=== PATIENT | female | born 1960 ===

== ENCOUNTER 2023-05-17 11:45 | Inpatient (IN) | payer OTHER ==
[~2023-05-17] VITALS: Ht 172.7 cm; Wt 77.6 kg
[2023-05-17] MEDS ORDERED: GLUMETZA500 MG PO (13:18)
[2023-05-17] MEDS ORDERED: CRESTOR20 MG PO (13:18)
[2023-05-17] MEDS ORDERED: SYNTHROID112 MCG PO (13:18)
[2023-05-25 18:16] LABS: HEMOGLOBIN 11.6 g/dL (12.0-15.00); MEAN CELL VOLUME 82.5 fL (80.00-100.00); MEAN CORPUSCULAR HEMOGLOBIN 26.6 pg (27.00-32.0); MEAN CORPUSCULAR HGB CONC 32.2 g/dl (32.0-36.0); PLATELET COUNT 280 K/uL (150-450); RED BLOOD COUNT 4.36 M/uL (4.00-6.00); RED CELL DISTRIBUTION WIDTH 14.1 % (11.5-14.5)
[2023-05-26 07:28] LABS: HEMATOCRIT 37.5 % (36.0-45.00); HEMOGLOBIN 12.4 g/dL (12.0-15.00); MEAN CORPUSCULAR HEMOGLOBIN 27.5 pg (27.00-32.0); MEAN CORPUSCULAR HGB CONC 33.1 g/dl (32.0-36.0); PLATELET COUNT 262 K/uL (150-450); RED BLOOD COUNT 4.51 M/uL (4.00-6.00); RED CELL DISTRIBUTION WIDTH 14.3 % (11.5-14.5)
[2023-05-26 08:09] LABS: ALBUMIN 2.7 gm/dL (3.4-5.0); CALCIUM 8.3 mg/dL (8.5-10.1); CREATININE SERUM 0.73 mg/dL (0.55-1.02); GFR 80.78; PHOSPHOROUS 4.4 mg/dL (2.5-4.9); POTASSIUM 4.01 mEq/L (3.5-5.1)
[2023-05-27 07:08] LABS: CREATININE SERUM 0.68 mg/dL (0.55-1.02); GFR 87.67; MAGNESIUM 2.1 mg/dL (1.8-2.4); POTASSIUM 3.96 mEq/L (3.5-5.1)
[2023-05-27 07:18] LABS: HEMATOCRIT 36.1 % (36.0-45.00); HEMOGLOBIN 12.3 g/dL (12.0-15.00); MEAN CELL VOLUME 81.4 fL (80.00-100.00); MEAN CORPUSCULAR HEMOGLOBIN 27.7 pg (27.00-32.0); MEAN CORPUSCULAR HGB CONC 34.1 g/dl (32.0-36.0); PLATELET COUNT 299 K/uL (150-450); RED BLOOD COUNT 4.44 M/uL (4.00-6.00); RED CELL DISTRIBUTION WIDTH 14.3 % (11.5-14.5)
[2023-05-28 08:13] LABS: HEMOGLOBIN 10.8 g/dL (12.0-15.00); MEAN CELL VOLUME 81.4 fL (80.00-100.00); MEAN CORPUSCULAR HEMOGLOBIN 27.5 pg (27.00-32.0); MEAN CORPUSCULAR HGB CONC 33.7 g/dl (32.0-36.0); PLATELET COUNT 246 K/uL (150-450); RED BLOOD COUNT 3.93 M/uL (4.00-6.00); RED CELL DISTRIBUTION WIDTH 14.5 % (11.5-14.5)
[2023-05-28 08:44] LABS: CALCIUM 8.3 mg/dL (8.5-10.1); CREATININE SERUM 0.53 mg/dL (0.55-1.02); GFR 116.89; PHOSPHOROUS 2.6 mg/dL (2.5-4.9); POTASSIUM 3.66 mEq/L (3.5-5.1); T4 TOTAL 8.81 UG/DL (4.8-13.9); TSH 3.2 uIU/mL (0.358-3.74)
[2023-05-30 06:59] LABS: INR 1.03; PARTIAL THROMBOPLASTIN TIME 26.7 SECONDS (22.0-34.0); PROTHROMBIN TIME 10.8 SECONDS (9.0-11.5)
[2023-05-30 07:21] LABS: HEMATOCRIT 30.2 % (36.0-45.00); HEMOGLOBIN 10.1 g/dL (12.0-15.00); MEAN CELL VOLUME 82.8 fL (80.00-100.00); MEAN CORPUSCULAR HEMOGLOBIN 27.6 pg (27.00-32.0); MEAN CORPUSCULAR HGB CONC 33.3 g/dl (32.0-36.0); PLATELET COUNT 262 K/uL (150-450); RED BLOOD COUNT 3.65 M/uL (4.00-6.00)
[2023-05-30 07:25] LABS: ALBUMIN 2.5 gm/dL (3.4-5.0); BILIRUBIN TOTAL 0.63 mg/dL (0.3-1.2); BILIRUBIN,CONJUGATED 0.17 mg/dL (0.0-0.2); BILIRUBIN,UNCONJUGATED 0.46 mg/dL (0.0-0.6); CALCIUM 8.6 mg/dL (8.5-10.1); CREATININE SERUM 0.5 mg/dL (0.55-1.02); GFR 125.02; GLOBULINA 3.4 G/DL (2.4-3.5); MAGNESIUM 2.1 mg/dL (1.8-2.4); POTASSIUM 3.96 mEq/L (3.5-5.1); TOTAL PROTEIN 5.9 gm/dL (6.4-8.2)
[2023-05-30 10:10] LABS: UREA CLEARANCE 48.6 ML/MIN
[2023-06-01] MEDS ORDERED: ACETAMINOPHEN500 M2 PO (13:30)
[2023-06-01] MEDS ORDERED: NEURONTIN300 MG PO (13:30)
== END 2023-06-01 18:16 | disposition home or self-care (01) | DRG 330 ==
LOC: MEDI 05-24 10:15 → O/R 05-25 05:47 → SURH 05-25 16:49
PROVIDERS: Internal Medicine Geriatric Medicine; ADMIT Colon & Rectal Surgery; ATTEND Colon & Rectal Surgery
PROC: 0WQF4ZZ Repair Abdominal Wall, Percutaneous Endoscopic Approach (ICD-10-PCS; 2023-05-25)
PROC: 0DTN4ZZ Resection of Sigmoid Colon, Percutaneous Endoscopic Approach (ICD-10-PCS; 2023-05-25)
PROC: 0DBP4ZZ Excision of Rectum, Percutaneous Endoscopic Approach (ICD-10-PCS; 2023-05-25)
PROC: 0DJD8ZZ Inspection of Lower Intestinal Tract, Via Natural or Artificial Opening Endoscopic (ICD-10-PCS; 2023-05-25)
PROC: 0DQ84ZZ Repair Small Intestine, Percutaneous Endoscopic Approach (ICD-10-PCS; 2023-05-25)
PROC: 0DQE4ZZ Repair Large Intestine, Percutaneous Endoscopic Approach (ICD-10-PCS; principal; 2023-05-25 07:00)
PROC: 02HV33Z Insertion of Infusion Device into Superior Vena Cava, Percutaneous Approach (ICD-10-PCS; 2023-05-27)
DX: K57.20 Diverticulitis of large intestine with perforation and abscess without bleeding (principal); K91.71 Accidental puncture and laceration of a digestive system organ or structure during a digestive system procedure; Z43.3 Encounter for attention to colostomy; K43.2 Incisional hernia without obstruction or gangrene; E78.49 Other hyperlipidemia; E03.9 Hypothyroidism, unspecified; K76.89 Other specified diseases of liver; E11.9 Type 2 diabetes mellitus without complications; Z79.4 Long term (current) use of insulin; K66.0 Peritoneal adhesions (postprocedural) (postinfection)